=== PATIENT | male | born 2005 | race Hispanic/Latino ===

== ENCOUNTER 2023-12-05 16:05 | Emergency (ER) | payer SELFPAY ==
[2023-12-05] MEDS ORDERED: NA CHLORIDE 0.9% 1,000 ML ONE (16:47)
[2023-12-05 17:22] LABS: Absolute Lymphocytes (CBC) 1.2 K/uL (0.7-4.9); Absolute Monocytes 0.4 K/uL (0.1-1.3); Absolute Neutrophil 6.1 K/uL (1.8-8.0); Basophils % 0.4 % (0-1.3); Eosinophils % 0.1 % (0-4.4); Hematocrit 45.8 % (39.6-49.0); Hemoglobin 15.4 g/dL (13.6-17.9); MCH 29.2 pg (27.0-35.0); MCHC 33.7 g/dL (32.0-36.0); MCV 86.5 fL (80-100); MPV 7.5 fL (7.6-11.3); Monocytes % 5.4 % (3.3-12.3); Neutrophils % 78.1 % (41.7-73.7); Nucleated Red Blood Cells % 0.2 % (0-0); Platelets 317 thou/uL (152-406); RBC Red Blood Cell Count 5.29 M/uL (4.33-5.43); Red Cell Distribution Width 12.9 % (12.1-15.2); Specific Gravity 1.007 (1.005-1.030); Urine Bilirubin NEGATIVE (Negative); Urine Blood Negative (Negative); Urine Clarity Clear (Clear); Urine Color Colorless (Yellow); Urine Glucose 1+ (Negative); Urine Ketones NEGATIVE (Negative); Urine Microscopic Reflex YN NO UMIC; Urine Nitrite NEGATIVE (Negative); Urine Protein NEGATIVE (Negative); Urine Urobilinogen Normal (Normal); Urine pH 6.5 (5.0-7.0)
[2023-12-05 17:41] LABS: Albumin 4.2 g/dL (3.4-5.0); Albumin/Globulin Ratio 1.2 (1.1-1.8); Anion Gap 8.6 mEq/L (5.0-15.0); Bilirubin Total 0.9 mg/dL (0.2-1.0); Globulin 3.4 g/dL (2.3-3.5); Potassium 3.6 mEq/L (3.5-5.1); Protein, Total 7.6 g/dL (6.4-8.2)
--- NOTE | 2023-12-05 18:18 | ER ---
Nurse's Notes [facility] Name: Nelson Holley Age: 18 yrs Sex: Male : 2005 Arrival Date: 12/05/2023 Time: 16:05 Bed 13 Private MD: Diagnosis: Anxiety disorder, unspecified;Anorexia Presentation: 12/04 16:33 Chief complaint: Parent and/or Guardian states: was in [place] a week ago, came back and iw he ate some chicken and he started to get hot and got diarrhea, now has normal BM since yesterday,he has had no appetite, I get light headed and then it makes me scared and I get flushed and I can't calm, he was seen in [place] ER on night and did blood work and gave IV fluids. Coronavirus screen: Client presents with at least one sign or symptom that may indicate coronavirus-19. Ebola Screen: No symptoms or risks identified at this time. Initial Sepsis Screen: Does the patient meet any 2 criteria? HR > 90 bpm. Does the patient have a suspected source of infection? No. Patient's initial sepsis screen is negative. Risk Assessment: Do you want to hurt yourself or someone else? Patient reports no desire to harm self or others. 16:33 Method Of Arrival: Ambulatory iw 16:33 Acuity: EILEEN 3 iw 17:24 Onset of symptoms was December 05, 2023. mb9 Historical: - Allergies: 16:36 PENICILLINS; iw - Home Meds: 16:36 None [Active]; iw - PMHx: 16:36 None; iw - PSHx: 16:36 None; iw - Immunization history:: Adult Immunizations not up to date. - Infectious Disease History:: Denies. - Social history:: Smoking status: Patient denies any tobacco usage or history of. - Family history:: not pertinent. Screenin:24 [facility] ED Fall Risk Assessment (Adult) History of falling in the last 3 months, mb9 including since admission No falls in past 3 months (0 pts) Confusion or Disorientation No (0 pts) Intoxicated or Sedated No (0 pts) Impaired Gait No (0 pts) Mobility Assist Device Used No (0 pt) Altered Elimination No (0 pt) Score/Fall Risk Level 0 - 2 = Low Risk Oriented to surroundings, Maintained a safe environment, Educated pt \T\ family on fall prevention, incl call for assistance when getting out of bed. Abuse screen: Denies threats or abuse. Nutritional screening: No deficits noted. Tuberculosis screening: No symptoms or risk factors identified. Assessment: 17:23 General: Appears in no apparent distress. Behavior is calm, cooperative. Pain: Denies mb9 pain. Neuro: Garvin Agitation-Sedation Scale (RASS): 0 - Alert and Calm Level of Consciousness is awake, alert, obeys commands, Oriented to person, place, time, situation, Appropriate for age. Cardiovascular: Patient's skin is warm and dry. Respiratory: Airway is patent Respiratory effort is even, unlabored, Respiratory pattern is regular, symmetrical. GI: Abdomen is round non-distended, Bowel sounds present X 4 quads. Abd is soft and non tender X 4 quads. Reports diarrhea. : No signs and/or symptoms were reported regarding the genitourinary system. EENT: No signs and/or symptoms were reported regarding the EENT system. Derm: Skin is pink, warm \T\ dry. Musculoskeletal: Range of motion: intact in all extremities. 18:06 Reassessment: No changes from previously documented assessment. Patient and/or family mb9 updated on plan of care and expected duration. Pain level reassessed. Patient is alert, oriented x 3, equal unlabored respirations, skin warm/dry/pink. Vital Signs: 16:33 BP 156 / 74; Pulse 105; Resp 18; Temp 98.5; Pulse Ox 100% on R/A; iw 18:06 BP 106 / 88; Pulse 72; Resp 18; Pulse Ox 100% on R/A; mb9 ED Course: 16:09 Patient arrived in ED. mr 16:32 Yariel Olivas MD is Attending Physician. mitchell 16:36 Triage completed. iw 16:37 Arm band placed on. iw 16:50 Inserted saline lock: 22 gauge in left antecubital area, using aseptic technique. Blood rs5 collected. Flushed with 10 mL NS. 17:00 Placed in gown. Bed in low position. Call light in reach. Side rails up X 1. mb9 17:16 Nikki Lau RN is Primary Nurse. mb9 17:24 No provider procedures requiring assistance completed. mb9 18:36 IV discontinued, intact, bleeding controlled, No redness/swelling at site. Pressure mb9 dressing applied. Administered Medications: 16:55 Drug: NS 0.9% IV 1000 ml IV at 100 ml/hr once Route: IV; Rate: 100 ml/hr; Site: left rs5 antecubital; 18:15 Follow up: Response: No adverse reaction; IV Status: Completed infusion mb9 Medication: 17:24 VIS not applicable for this client. [email or web address] Outcome: 18:17 Discharge ordered by MD. medrano 18:37 Discharged to home ambulatory, with family, tiffany 18:37 Condition: stable 18:37 Discharge instructions given to patient, Instructed on discharge instructions, follow up and referral plans. Demonstrated understanding of instructions, follow-up care, 18:37 Patient left the ED. mb9 Signatures: Yariel Olivas MD MD cha Rivera, Mary, [facility] Reg mr Trisha Yuen, RN Nikki Kline, CHICO RN mb9 Pola Mccann RN RN rs5 Corrections: (The following items were deleted from the chart) 18:15 18:06 Pulse 72bpm; Resp 18bpm; Pulse Ox 100% RA; mb9 mb9
--- NOTE | 2023-12-05 18:18 | EDPHYS ---
Physician Documentation [facility] Name: Nelson Holley Age: 18 yrs Sex: Male : 2005 Arrival Date: 12/05/2023 Time: 16:05 Bed 13 Private MD: ED Physician Yariel Olivas HPI: 12/04 18:08 This 18 yrs old Male presents to ER via Ambulatory with complaints of Anxiety, mitchell Decreased Appetite, Dehydrated. 18:08 The patient presents to the emergency department with nausea, vomiting, diarrhea, that mitchell is intermittent. Onset: The symptoms/episode began/occurred 3 day(s) ago. Possible causes: unknown. The symptoms are aggravated by nothing. The symptoms are alleviated by. weak, anxious. Associated signs and symptoms: The patient has no apparent associated signs or symptoms. Severity of symptoms: At their worst the symptoms were mild in the emergency department the symptoms are unchanged. The patient has experienced similar episodes in the past, a few times. Historical: - Allergies: 16:36 PENICILLINS; iw - Home Meds: 16:36 None [Active]; iw - PMHx: 16:36 None; iw - PSHx: 16:36 None; iw - Immunization history:: Adult Immunizations not up to date. - Infectious Disease History:: Denies. - Social history:: Smoking status: Patient denies any tobacco usage or history of. - Family history:: not pertinent. ROS: 18:08 Constitutional: Negative for fever, chills, and weight loss, Eyes: Negative for injury, mitchell pain, redness, and discharge, ENT: Negative for injury, pain, and discharge, Neck: Negative for injury, pain, and swelling, Cardiovascular: Negative for chest pain, palpitations, and edema, Respiratory: Negative for shortness of breath, cough, wheezing, and pleuritic chest pain, Abdomen/GI: Negative for abdominal pain, nausea, vomiting, diarrhea, and constipation, Back: Negative for injury and pain, : Negative for injury, bleeding, discharge, and swelling, MS/Extremity: Negative for injury and deformity, Skin: Negative for injury, rash, and discoloration, Neuro: Negative for headache, weakness, numbness, tingling, and seizure, Allergy/Immunology: Negative for hives, rash, and allergies, Endocrine: Negative for neck swelling, polydipsia, polyuria, polyphagia, and marked weight changes, Hematologic/Lymphatic: Negative for swollen nodes, abnormal bleeding, and unusual bruising, 18:08 Psych: Positive for anxiety, Exam: 18:08 Constitutional: This is a well developed, well nourished patient who is awake, alert, mitchell and in no acute distress. Head/Face: Normocephalic, atraumatic. Eyes: Pupils equal round and reactive to light, extra-ocular motions intact. Lids and lashes normal. Conjunctiva and sclera are non-icteric and not injected. Cornea within normal limits. Periorbital areas with no swelling, redness, or edema. ENT: Nares patent. No nasal discharge, no septal abnormalities noted. Tympanic membranes are normal and external auditory canals are clear. Oropharynx with no redness, swelling, or masses, exudates, or evidence of obstruction, uvula midline. Mucous membranes moist. Neck: Trachea midline, no thyromegaly or masses palpated, and no cervical lymphadenopathy. Supple, full range of motion without nuchal rigidity, or vertebral point tenderness. No Meningismus. Chest/axilla: Normal chest wall appearance and motion. Nontender with no deformity. No lesions are appreciated. Cardiovascular: Regular rate and rhythm with a normal S1 and S2. No gallops, murmurs, or rubs. Normal PMI, no JVD. No pulse deficits. Respiratory: Lungs have equal breath sounds bilaterally, clear to auscultation and percussion. No rales, rhonchi or wheezes noted. No increased work of breathing, no retractions or nasal flaring. Abdomen/GI: Soft, non-tender, with normal bowel sounds. No distension or tympany. No guarding or rebound. No evidence of tenderness throughout. Back: No spinal tenderness. No costovertebral tenderness. Full range of motion. Male : Normal genitalia with no discharge or lesions. Skin: Warm, dry with normal turgor. Normal color with no rashes, no lesions, and no evidence of cellulitis. MS/ Extremity: Pulses equal, no cyanosis. Neurovascular intact. Full, normal range of motion. Neuro: Awake and alert, GCS 15, oriented to person, place, time, and situation. Cranial nerves II-XII grossly intact. Motor strength 5/5 in all extremities. Sensory grossly intact. Cerebellar exam normal. Normal gait. Psych: Awake, alert, with orientation to person, place and time. Behavior, mood, and affect are within normal limits. 18:08 Neck: ROM/movement: is normal, is supple, no acute changes, pain, is not appreciated, limited range of motion, is not appreciated, Meningeal signs: are not present, Kernig's sign is negative, Brudzinski's sign is negative, nuchal rigidity, is not appreciated, 18:18 Musculoskeletal/extremity: ROM: intact in all extremities, full active range of motion, mitchell full passive range of motion, Circulation is intact in all extremities. Sensation intact. Compartment Syndrome exam of affected extremity: is normal. no pain, no numbness, no tingling, no sensation deficit, no palor, no weak pulses, DVT Exam: No signs of deep vein thrombosis. no pain, no swelling, no tenderness, negative Homans' sign noted on exam, no appreciated bluish discoloration, no erythema, no increased warmth, Vital Signs: 16:33 BP 156 / 74; Pulse 105; Resp 18; Temp 98.5; Pulse Ox 100% on R/A; iw 18:06 BP 106 / 88; Pulse 72; Resp 18; Pulse Ox 100% on R/A; mb9 MDM: 16:32 Medical Screening Exam initiated mitchell 18:11 Differential diagnosis: Nonspecific abd pain, viral gastroenteritis, gastroenteritis. mitchell Differential Diagnosis altered mental status, sepsis, flu. Data reviewed: vital signs, nurses notes, lab test result(s), CBC, electrolytes, hepatic panel. Consideration of Admission/Observation Escalation of care including admission/observation considered. I considered the following discharge prescriptions or medication management in the emergency department Medications were administered in the Emergency Department. See APR. 12/04 16:33 Order name: CBC with Diff; Complete Time: 18:08 [facility] 12/04 16:33 Order name: Comprehensive Metabolic Panel; Complete Time: 18:08 [facility] 12/04 16:33 Order name: Urinalysis w/ reflexes; Complete Time: 18:08 [facility] 12/04 16:33 Order name: CPK; Complete Time: 18:08 [facility] Administered Medications: 16:55 Drug: NS 0.9% IV 1000 ml IV at 100 ml/hr once Route: IV; Rate: 100 ml/hr; Site: left rs5 antecubital; 18:15 Follow up: Response: No adverse reaction; IV Status: Completed infusion mb9 Disposition Summary: 12/05/23 18:17 Discharge Ordered Notes: Location: Home mitchell Problem: new mitchell Symptoms: have improved mitchell Condition: Stable mitchell Diagnosis - Anxiety disorder, unspecified mitchell - Anorexia mitchell Followup: mitchell - With: Private Physician - When: 2 - 3 days - Reason: Recheck today's complaints, Continuance of care, Re-evaluation by your physician Discharge Instructions: - Discharge Summary Sheet mitchell - Supporting Someone With Anxiety mitchell - Managing Anxiety, Adult mitchell Forms: - Medication Reconciliation Form mitchell - Antibiotic Education mitchell - Prescription Opioid Use mitchell - Patient Portal Instructions mitchell - Leadership Thank You Letter mitchell Signatures: Dispatcher [employer] EDYariel Kirby MD MD cha Williams, Irene, RN RN Pola Boyd RN RN rs5 Nikki Lau RN mb9
[2023-12-05 22:18] VITALS: TEMP 98.5; O2SAT 100
[2023-12-05 22:19] VITALS: BP 106/88
== END 2023-12-05 18:37 | disposition home or self-care (01) ==
LOC: ER 16:05
DX: F41.9 Anxiety disorder, unspecified (principal); R63.0 Anorexia
CPT/HCPCS: 36415; 80053; 81003; 82550; 85025; 96360; 99284; J7030